=== PATIENT | male | born 1955 | race Caucasian/White ===

== ENCOUNTER 2017-02-15 14:34 | Emergency (ER) | payer BC ==
[2017-02-15] MEDS ORDERED: Sodium Chloride 0.9% 250 ML ONE (14:38)
[2017-02-15] MEDS ORDERED: EPINEPHrine 1 MG/ML SDV ONE ×3 (14:38→15:30)
[2017-02-15] MEDS ORDERED: Sodium Chloride 0.9% 100 ML ONE (14:47)
[2017-02-15] MEDS ORDERED: Lactated Ringers 1,000 ML IV ONE (14:52)
[2017-02-15] MEDS ORDERED: Famotidine 20 MG/2 ML SDV IVPUSH ONE (14:52)
[2017-02-15] MEDS ORDERED: methylPREDNISolone Sodium Succinate 125 MG/2 ML SDV IVPUSH ONE (14:52)
[2017-02-15 14:57] VITALS: BP 114/75
[2017-02-15] MEDS ORDERED: Lactated Ringers 1,000 ML IV SCH (16:05)
[2017-02-15] MEDS ORDERED: Lactated Ringers 1,000 ML ONE (16:08)
--- NOTE | 2017-02-15 19:51 | EDM.PDOC ---
ED HPI GENERAL MEDICAL PROBLEM - General Chief Complaint: Allergic Reaction Stated Complaint: [facility] Time Seen by Provider: 02/15/17 14:34 - History of Present Illness INITIAL COMMENTS - FREE TEXT/NARRATIVE: 51-year-old male brought in by EMS after having a reaction to bee sting. The patient was unresponsive have an agonal respirations he did have a pulse when EMS arrived prior to EMS arriving the patient was lightheaded had a few shaking episodes and then became unresponsive. The patient apparently had a bee sting to his left hand palmar aspect the triggered this. The patient has had recent bee stings without significant reactions. Upon arrival here the patient is waking up with a pulse in the 90s and a blood pressure in the 120s Treatments SOFTWARE PRODUCT MANAGER: Reports: IV/IO, Oxygen, Other (see below) Other Treatments SOFTWARE PRODUCT MANAGER: epi, benadryl - Related Data Allergies Allergy/AdvReac Type Severity Reaction Status Date / Time bees Allergy Anaphylactic Uncoded 02/15/17 18:18 Shock Home Meds: Home Meds Ranitidine HCl [Zantac] 1 tab PO BEDTIME 11/30/15 [History] Ascorbic Acid [Vitamin C] 1 tab PO DAILY 02/15/17 [History] EPINEPHrine [Epipen] 0.3 mg IM ASDIRECTED #1 ml 02/15/17 [Rx] Saw/Vit E/Sod Tessy/Lyc/Beta/Pyg [Prostate Health Caplet] 1 tab PO DAILY 02/15/17 [History] Past Medical History - Past Health History Medical/Surgical History: Denies Medical/Surgical History HEENT History: Reports: None Cardiovascular History: Reports: None Respiratory History: Reports: COPD Gastrointestinal History: Reports: Gastritis, GI Bleed Other Gastrointestinal History: Bleeding ulcers 15 years ago Genitourinary History: Reports: None Neurological History: Reports: None Endocrine/Metabolic History: Reports: None Hematologic History: Reports: None Oncologic (Cancer) History: Reports: None Dermatologic History: Reports: None - Infectious Disease History Infectious Disease History: Reports: None - Past Surgical History Male Surgical History: Reports: None Other Musculoskeletal Surgeries/Procedures:: right femur surgery 30 years ago Social & Family History - Family History Family Medical History: Noncontributory - Tobacco Use Smoking Status *Q: Current Every Day Smoker Years of Tobacco use: 40 Packs/Tins Daily: 1 Used Tobacco, but Quit: No Second Hand Smoke Exposure: No - Caffeine Use Caffeine Use: Reports: Soda - Recreational Drug Use Recreational Drug Use: No - Living Situation & Occupation Living situation: Reports: Occupation: Employed ED ROS ALLERGIC REACTION - Review of Systems Review Of Systems: See Below Constitutional: Reports: No Symptoms HEENT: Reports: Throat Swelling Respiratory: Reports: Shortness of Breath Cardiovascular: Reports: Lightheadedness Endocrine: Reports: No Symptoms GI/Abdominal: Reports: No Symptoms : Reports: No Symptoms Neurological: Reports: Dizziness. Denies: Headache Psychiatric: Reports: No Symptoms ED EXAM GENERAL NO PERIP PULSE - Physical Exam Exam: See Below Exam Limited By: Other (Patient was drowsy upon arrival here but waking up) General Appearance: Other (He looks a little pale upon arrival here but this rapidly improved) Eye Exam: Bilateral Eye: EOMI, Normal Inspection, PERRL Ears: Normal External Exam, Normal Canal, Hearing Grossly Normal, Normal TMs Nose: Normal Inspection, Normal Mucosa, No Blood Throat/Mouth: Normal Inspection, Normal Oropharynx, No Airway Compromise Head: Other (He has a fresh abrasion on his anterior chin) Neck: Normal Inspection, Supple, Non-Tender, Full Range of Motion. No: Lymphadenopathy (L), Lymphadenopathy (R) Respiratory/Chest: Other (Upon arrival here he was not in respiratory distress his breath sounds were clear no wheezes crackles or rhonchi respirations nonlabored) Cardiovascular: Regular Rate, Rhythm, No Edema, No Murmur GI/Abdominal: Normal Bowel Sounds, Soft, Non-Tender, No Distention, Pelvis Stable Back Exam: Normal Inspection. No: CVA Tenderness (L), CVA Tenderness (R), Vertebral Tenderness Extremities: Normal Inspection, Normal Range of Motion, Non-Tender, No Pedal Edema Neurological: Alert, Oriented, Normal Cognition Psychiatric: Normal Affect Skin Exam: Warm, Dry, Intact, Other (Bee sting noted left palmar hand between the metacarpophalangeal joints of the ring and pinky fingers) Course - Vital Signs Last Recorded V/S: Last Vital Signs Temp 36.3 C 02/15/17 14:45 Pulse 93 02/15/17 14:45 Resp 24 H 02/15/17 14:45 BP 114/75 02/15/17 14:45 Pulse Ox 94 L 02/15/17 14:45 - Orders/Labs/Meds Orders: Active Orders 24 hr Category Date Time Status EKG Documentation Completion [RC] STAT Care 02/15/17 14:53 Active Chest 1V Frontal [CR] Stat Exams 02/15/17 14:53 Taken Head wo Cont [CT] Stat Exams 02/15/17 15:10 Taken Lactated Ringers [Ringers, Lactated] 1,000 ml Med 02/15/17 16:05 Active IV STAT Medication Orders Lactated Ringer's (Ringers, Lactated) 1,000 mls @ 150 mls/hr IV STAT ESTEBAN Last Admin: 02/15/17 16:07 Dose: 150 mls/hr Labs: Laboratory Tests 02/15/17 02/15/17 02/15/17 Range/Units 15:06 15:06 15:54 WBC 10.67 H (4.23-9.07) K/mm3 RBC 5.37 (4.63-6.08) M/mm3 Hgb 16.8 (13.7-17.5) gm/L Hct 50.2 (40.1-51.0) % MCV 93.5 H (79.0-92.2) fl MCH 31.3 (25.7-32.2) pg MCHC 33.5 (32.2-35.5) g/dl RDW Std Deviation 46.8 H (35.1-43.9) fL Plt Count 240 (163-337) K/mm3 MPV 9.8 (9.4-12.3) fl Neutrophils % (Manual) 63 H (40-60) % Band Neutrophils % 0 (0-10) % Lymphocytes % (Manual) 30 (20-40) % Atypical Lymphs % 0 % Monocytes % (Manual) 7 (2-10) % Eosinophils % (Manual) 0 L (0.8-7.0) % Basophils % (Manual) 0 L (0.2-1.2) Platelet Estimate Adequate Plt Morphology Comment Normal RBC Morph Comment Normal Puncture Site Rt radial ABG pH 7.32 L (7.35-7.45) ABG pCO2 45.1 H (35.0-45.0) mmHg ABG pO2 79.0 L (80.0-100.0) mmHg ABG HCO3 22.4 (22.0-26.0) meq/L ABG O2 Saturation 96.4 (96.0-97.0) % ABG Base Excess -3.5 L (-2-2.0) A-a Gradient 95 mmHg O2 Delivery Device Nasal cannula Oxygen Flow Rate 4.0 FiO2 36.00 (21.00-100.00) % Sodium 144 (136-145) mEq/L Potassium 3.8 (3.5-5.1) mEq/L Chloride 107 (98-107) mEq/L Carbon Dioxide 26 (21-32) mEq/L Anion Gap 14.8 (5-15) BUN 23 H (7-18) mg/dL Creatinine 1.7 H (0.7-1.3) mg/dL Est Cr Clr Drug Dosing 41.58 mL/min Estimated GFR (MDRD) 41 (>60) mL/min BUN/Creatinine Ratio 13.5 L (14-18) Glucose 166 H (80-115) mg/dL Calcium 8.7 (8.5-10.1) mg/dL Total Bilirubin 0.3 (0.2-1.0) mg/dL AST 17 (15-37) U/L ALT 31 (16-63) U/L Alkaline Phosphatase 68 (46-116) U/L Troponin I 0.034 (0.00-0.056) ng/mL Total Protein 6.5 (6.4-8.2) g/dl Albumin 3.5 (3.4-5.0) g/dl Globulin 3.0 gm/dL Albumin/Globulin Ratio 1.2 (1-2) Meds: Medications Generic Name Dose Route Start Last Admin Trade Name Freq PRN Reason Stop Dose Admin Lactated Ringer's 1,000 mls @ 150 mls/hr 02/15/17 16:05 02/15/17 16:07 Ringers, Lactated IV 150 mls/hr STAT ESTEBAN Administration Discontinued Medications Generic Name Dose Route Start Last Admin Trade Name Freq PRN Reason Stop Dose Admin Epinephrine HCl Confirm 02/15/17 15:30 Adrenalin 1:1000 Administered 02/15/17 15:31 Dose 1 mg .ROUTE .STK-MED ONE Famotidine 40 mg 02/15/17 14:52 02/15/17 15:02 Pepcid IVPUSH 02/15/17 14:53 40 mg ONETIME ONE Administration Lactated Ringer's 1,000 mls @ 999 mls/hr 02/15/17 14:52 02/15/17 15:02 Ringers, Lactated IV 02/15/17 15:52 999 mls/hr .BOLUS ONE Administration Lactated Ringer's Confirm 02/15/17 16:08 02/15/17 16:09 Ringers, Lactated Administered 02/15/17 16:09 Not Given Dose 1,000 mls @ as directed .ROUTE .STK-MED ONE Methylprednisolone Sodium Succinate 125 mg 02/15/17 14:52 02/15/17 15:02 Solu-Medrol IVPUSH 02/15/17 14:53 125 mg ONETIME ONE Administration - Re-Assessments/Exams Free Text/Narrative Re-Assessment/Exam: 02/15/17 19:47 Patient was brought into the emergency room by EMS after with sounds like a severe reaction after being stung in the left hand by a beer wasp. The patient recalls getting stung as he was spraying in the yard he jumped into a side-by- side and headed to the bar where he knew of someone that helps out on the EMS service that was there. EMS was activated the patient shortly after arriving at the bar which was about the time EMS was activated became lightheaded he had a couple of shaking episodes. When EMS arrived the patient was have an agonal type respirations he did have a pulse he was given epinephrine and Benadryl and his condition did improve somewhat they got an IV going and fluids started they repeated the epinephrine for a total of 3 doses 0.5 mg. When the patient arrived here his blood pressure was reasonable his pulse had improved he was coming around and waking up he was observed and he continued to do well he was kept on fluids he was given Solu-Medrol he was given Pepcid he received Benadryl by EMS. The patient situation was observed for multiple hours and he has done well he would like to go home at this point labs were obtained of concern is his BUN/creatinine are elevated a little bit with a creatinine of 1.7 also of note his blood sugar of 166. 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 The patient will be discharged with prescription for EpiPen. Departure - Departure Time of Disposition: 19:51 Disposition: Home, Self-Care 01 Clinical Impression: Bee sting-induced anaphylaxis - Discharge Information Prescriptions: EPINEPHrine [Epipen] 0.3 mg IM ASDIRECTED #1 ml Instructions: Anaphylactic Reaction, Jhyv-[id number], Bee, Wasp, or Hornet Sting Referrals: PCP,None [Primary Care Provider] - Forms: ED Department Discharge Additional Instructions: Return to the emergency room with any questions problems or worsening symptoms. Seek immediate medical care if he need to use your EpiPen. Follow-up in the Hospital clinic on Thursday or for recheck. [phone]. Discuss rechecking your kidney function and rechecking your blood sugar. On a normal day you should drink 6-812 ounce glasses of water. On days that you are working outside in the heat this needs to increase. Increase her fluid intake. - My Orders Last 24 Hours: My Active Orders 02/15/17 14:53 EKG Documentation Completion [RC] STAT Chest 1V Frontal [CR] Stat 02/15/17 15:10 Head wo Cont [CT] Stat 02/15/17 16:05 Lactated Ringers [Ringers, Lactated] 1,000 ml IV STAT - Assessment/Plan Last 24 Hours: My Active Orders 02/15/17 14:53 EKG Documentation Completion [RC] STAT Chest 1V Frontal [CR] Stat 02/15/17 15:10 Head wo Cont [CT] Stat 02/15/17 16:05 Lactated Ringers [Ringers, Lactated] 1,000 ml IV STAT
--- NOTE | 2017-02-16 08:57 | CR ---
Chest: Portable view of the chest was obtained. Comparison: No prior study. Heart size and mediastinum are within normal limits for portable technique. Lungs are clear. Bony structures are grossly intact. Impression: 1. Nothing acute is identified on portable chest x-ray. Diagnostic code #1
--- NOTE | 2017-02-16 12:15 | CT ---
Head CT Technique: Multiple axial sections through the brain were obtained. Intravenous contrast was not utilized. Comparison: Previous head CT study of 11/30/15. Findings: Ventricles along with basal cisterns and sulci over the convexities are mildly prominent. Minimal diminished density is scattered within the periventricular white matter compatible with small vessel ischemic demyelination change. No other abnormal parenchymal densities are seen. No evidence of intracranial hemorrhage. No midline shift or mass effect is seen. Bone window settings were reviewed which show the visualized sinuses to appear clear. No acute calvarial abnormality is identified. Impression: 1. Minimal senescent change. Nothing acute is seen on noncontrast head CT study. Diagnostic code #2 I agree with preliminary report issued by [employer] ([employer] preliminary report dictated on 02/15/17, 4:57 PM Central Time)
== END 2017-02-15 20:10 | disposition home or self-care (01) ==
LOC: JD.ED 14:34
DX: T63.441A Toxic effect of venom of bees, accidental (unintentional), initial encounter (principal); T78.2XXA Anaphylactic shock, unspecified, initial encounter; J44.9 Chronic obstructive pulmonary disease, unspecified; F17.210 Nicotine dependence, cigarettes, uncomplicated; Z79.899 Other long term (current) drug therapy
CPT/HCPCS: 36415; 36600; 70450; 71010; 80053; 82803; 84484; 85025; 93005; 96361; 96374; 96375; 99285; J2930; J7120; 99283

== ENCOUNTER 2017-04-11 21:44 | Emergency (ER) | payer BC ==
--- NOTE | 2017-04-11 22:00 | EDM.PDOC ---
ED HPI GENERAL MEDICAL PROBLEM - General Chief Complaint: Genitourinary Problem Stated Complaint: CANNOT URINATE Time Seen by Provider: 04/11/17 21:46 Source of Information: Reports: Patient History Limitations: Reports: No Limitations - History of Present Illness INITIAL COMMENTS - FREE TEXT/NARRATIVE: This is a 61-year-old male. At 8:30 PM this evening he noted he was not able to urinate and has not been able to urinate since that time. He comes to the ER because his bladder is full on exam in a lot of lower abdominal pain. Back in July of this year he had a similar episode requiring a Ramsey catheter and is thought to be due to a stone he tells me it was in the way and the Ramsey catheter push that stone out of the way. He never followed up with anybody after that and just remove the Ramsey catheter himself at home and seemed to do okay since that time. He does state that he has not noted a change in his urine stream or dribbles. He denies any other acute symptoms. Bladder Pain Score (Numeric/FACES): 8 - Related Data Allergies Allergy/AdvReac Type Severity Reaction Status Date / Time bees Allergy Anaphylactic Uncoded 04/11/17 21:50 Shock Home Meds: Home Meds . [No Known Home Meds] 04/11/17 [History] Past Medical History - Past Health History Medical/Surgical History: Denies Medical/Surgical History HEENT History: Reports: None Cardiovascular History: Reports: None Respiratory History: Reports: COPD Gastrointestinal History: Reports: Gastritis, GI Bleed Other Gastrointestinal History: Bleeding ulcers 15 years ago Genitourinary History: Reports: None Neurological History: Reports: None Endocrine/Metabolic History: Reports: None Hematologic History: Reports: None Oncologic (Cancer) History: Reports: None Dermatologic History: Reports: None - Infectious Disease History Infectious Disease History: Reports: None - Past Surgical History Male Surgical History: Reports: None Other Musculoskeletal Surgeries/Procedures:: right femur surgery 30 years ago Social & Family History - Family History Family Medical History: Noncontributory - Tobacco Use Smoking Status *Q: Current Every Day Smoker Years of Tobacco use: 40 Packs/Tins Daily: 1 Used Tobacco, but Quit: No Second Hand Smoke Exposure: No - Caffeine Use Caffeine Use: Reports: Soda - Recreational Drug Use Recreational Drug Use: No - Living Situation & Occupation Living situation: Reports: Occupation: Employed ED ROS GENERAL - Review of Systems Review Of Systems: See Below Constitutional: Denies: Fever, Chills HEENT: Reports: No Symptoms Respiratory: Reports: No Symptoms Cardiovascular: Reports: No Symptoms Endocrine: Reports: No Symptoms GI/Abdominal: Reports: Abdominal Pain : Reports: Urinary Retention Musculoskeletal: Reports: No Symptoms Skin: Reports: No Symptoms Neurological: Reports: No Symptoms Psychiatric: Reports: No Symptoms Hematologic/Lymphatic: Reports: No Symptoms ED EXAM, RENAL/ - Physical Exam Exam: See Below Exam Limited By: No Limitations General Appearance: Alert, WD/WN, Mild Distress Eye Exam: Bilateral Eye: Normal Inspection Ears: Normal External Exam Nose: Normal Inspection Throat/Mouth: Normal Inspection, Normal Lips, Normal Voice Head: Normocephalic Neck: Supple Respiratory/Chest: No Respiratory Distress GI/Abdominal: Other (Mildly distended, noted to be very tense in the lower abdomen and painful on palpation, not feeling any masses though I believe I feel the fundus of the bladder) Rectal (Males) Exam: Normal Rectal Tone Back Exam: Normal Inspection, Full Range of Motion Extremities: Normal Inspection, Normal Range of Motion Neurological: Alert, Oriented Skin Exam: Warm, Dry Course - Vital Signs Last Recorded V/S: Last Vital Signs Temp 98.5 F 04/11/17 21:51 Pulse 100 04/11/17 21:51 Resp 18 04/11/17 21:51 BP 201/94 H 04/11/17 21:51 Pulse Ox 95 04/11/17 21:51 - Orders/Labs/Meds Orders: Active Orders 24 hr Category Date Time Status Insert Ramsey Catheter [Insert Urinary Catheter] [OM.PC] Care 04/11/17 22:30 Ordered Q24H Urinary Catheter Assessment [RC] ASDIRECTED Care 04/11/17 22:23 Active Labs: Laboratory Tests 04/11/17 04/11/17 04/11/17 Range/Units 22:45 22:55 22:55 WBC 11.79 H (4.23-9.07) K/mm3 RBC 5.29 (4.63-6.08) M/mm3 Hgb 16.9 (13.7-17.5) gm/L Hct 49.0 (40.1-51.0) % MCV 92.6 H (79.0-92.2) fl MCH 31.9 (25.7-32.2) pg MCHC 34.5 (32.2-35.5) g/dl RDW Std Deviation 46.0 H (35.1-43.9) fL Plt Count 196 (163-337) K/mm3 MPV 10.1 (9.4-12.3) fl Neut % (Auto) 82.5 H (34.0-67.9) % Lymph % (Auto) 11.4 L (21.8-53.1) % Alexander % (Auto) 5.3 (5.3-12.2) % Eos % (Auto) 0.5 L (0.8-7.0) Baso % (Auto) 0.1 (0.1-1.2) % Neut # (Auto) 9.73 H (1.78-5.38) K/mm3 Lymph # (Auto) 1.34 (1.32-3.57) K/mm3 Alexander # (Auto) 0.63 (0.30-0.82) K/mm3 Eos # (Auto) 0.06 (0.04-0.54) K/mm3 Baso # (Auto) 0.01 (0.01-0.08) K/mm3 Sodium 142 (136-145) mEq/L Potassium 4.0 (3.5-5.1) mEq/L Chloride 105 (98-107) mEq/L Carbon Dioxide 27 (21-32) mEq/L Anion Gap 14.0 (5-15) BUN 30 H (7-18) mg/dL Creatinine 1.3 (0.7-1.3) mg/dL Est Cr Clr Drug Dosing 56.27 mL/min Estimated GFR (MDRD) 56 (>60) mL/min BUN/Creatinine Ratio 23.1 H (14-18) Glucose 115 (80-115) mg/dL Calcium 8.5 (8.5-10.1) mg/dL Total Bilirubin 0.5 (0.2-1.0) mg/dL AST 23 (15-37) U/L ALT 37 (16-63) U/L Alkaline Phosphatase 71 (46-116) U/L Total Protein 6.4 (6.4-8.2) g/dl Albumin 3.6 (3.4-5.0) g/dl Globulin 2.8 gm/dL Albumin/Globulin Ratio 1.3 (1-2) Urine Color Yellow (Yellow) Urine Appearance Clear (Clear) Urine pH 6.5 (5.0-8.0) Ur Specific Hurley 1.015 (1.005-1.030) Urine Protein Negative (Negative) Urine Glucose (UA) Negative (Negative) Urine Ketones Negative (Negative) Urine Occult Blood 3+ H (Negative) Urine Nitrite Negative (Negative) Urine Bilirubin Negative (Negative) Urine Urobilinogen 0.2 (0.2-1.0) Ur Leukocyte Esterase Negative (Negative) Urine RBC 20-30 H (0-5) /hpf Urine WBC 0-5 (0-5) /hpf Ur Epithelial Cells 0-5 (0-5) /hpf Urine Bacteria Not seen (FEW) /hpf Urine Mucus Not seen (FEW) /hpf - Re-Assessments/Exams Free Text/Narrative Re-Assessment/Exam: 04/11/17 22:33 Bladder scan showed about 720 mL and was replace the Ramsey catheter we got about 750 mL of urine. It does appear to be slightly pink tinged we'll send for urinalysis I'm going to get some blood work on him to check kidney function as well. 04/11/17 23:57 I spoke to the patient regarding his lab results he does have some blood in his urine and I believe that's from the urinary retention putting pressure on the kidneys. I explained to him that should resolve in the next 24 hours if it does not when he sees the family physician on Thursday he needs to have that rechecked. He understands. He has been given Ramsey catheter care. Departure - Departure Time of Disposition: 23:57 Disposition: Home, Self-Care 01 Condition: Good Clinical Impression: Urinary retention Hematuria Qualifiers: Hematuria type: unspecified type Qualified Code(s): R31.9 - Hematuria, unspecified - Discharge Information Instructions: Ramsey Catheter Care, Adult Referrals: Meche Pyle [Physician] - Forms: ED Department Discharge Additional Instructions: On Thursday called Dr. Pyle's office and let them know that you have a Ramsey catheter so that they can see you Thursday and remove that catheter, continue with Ramsey catheter care at home, return to the ER if needed - My Orders Last 24 Hours: My Active Orders 04/11/17 22:23 Urinary Catheter Assessment [RC] ASDIRECTED 04/11/17 22:30 Insert Ramsye Catheter [Insert Urinary Catheter] [OM.PC] Q24H - Assessment/Plan Last 24 Hours: My Active Orders 04/11/17 22:23 Urinary Catheter Assessment [RC] ASDIRECTED 04/11/17 22:30 Insert Ramsey Catheter [Insert Urinary Catheter] [OM.PC] Q24H
[2017-04-12 00:07] VITALS: BP 133/73
== END 2017-04-12 00:04 | disposition home or self-care (01) ==
LOC: JD.ED 21:44
DX: R33.9 Retention of urine, unspecified (principal); R31.9 Hematuria, unspecified; F17.210 Nicotine dependence, cigarettes, uncomplicated; Z91.030 Bee allergy status
CPT/HCPCS: 36415; 51702; 51798; 80053; 81001; 85025; 99284; 99284-25

== ENCOUNTER 2017-08-14 19:05 | Emergency (ER) | payer BC ==
[2017-08-14 19:14] VITALS: BP 197/91
--- NOTE | 2017-08-14 19:36 | EDM.PDOC ---
ED HPI GENERAL MEDICAL PROBLEM - General Chief Complaint: Genitourinary Problem Stated Complaint: TROUBLE URINATING Time Seen by Provider: 08/14/17 19:14 Source of Information: Reports: Patient History Limitations: Reports: No Limitations - History of Present Illness INITIAL COMMENTS - FREE TEXT/NARRATIVE: Is a 61-year-old male. He states he started having some urinary retention this evening and comes to the ER because he cannot urinate. He's had this problem before once in July 2016 and then April 2017. He says he got an MRI of his abdomen and pelvis because they thought they saw a bladder stone but he was called and told that his MRI was normal. He was supposed to follow up with someone he is not sure to get blood work for further evaluation of his urinary retention. He denies any other acute symptoms. No recent over-the -counter medication such as decongestants. He is on Flomax. No other acute symptoms at this time. Bladder Pain Score (Numeric/FACES): 10 - Related Data Allergies Allergy/AdvReac Type Severity Reaction Status Date / Time bees Allergy Anaphylactic Uncoded 04/11/17 21:50 Shock Home Meds: Home Meds Ranitidine HCl [Zantac] 300 mg PO DAILY 08/14/17 [History] Tamsulosin [Flomax] 0.4 mg PO DAILY 08/14/17 [History] Past Medical History - Past Health History Medical/Surgical History: Denies Medical/Surgical History HEENT History: Reports: None Cardiovascular History: Reports: None Respiratory History: Reports: COPD Gastrointestinal History: Reports: Gastritis, GI Bleed Other Gastrointestinal History: Bleeding ulcers 15 years ago Genitourinary History: Reports: None Neurological History: Reports: None Endocrine/Metabolic History: Reports: None Hematologic History: Reports: None Oncologic (Cancer) History: Reports: None Dermatologic History: Reports: None - Infectious Disease History Infectious Disease History: Reports: None - Past Surgical History Male Surgical History: Reports: None Other Musculoskeletal Surgeries/Procedures:: right femur surgery 30 years ago Social & Family History - Family History Family Medical History: Noncontributory - Tobacco Use Smoking Status *Q: Current Every Day Smoker Years of Tobacco use: 40 Packs/Tins Daily: 1 Used Tobacco, but Quit: No Second Hand Smoke Exposure: No - Caffeine Use Caffeine Use: Reports: Tea - Recreational Drug Use Recreational Drug Use: No - Living Situation & Occupation Living situation: Reports: Occupation: Employed ED ROS GENERAL - Review of Systems Review Of Systems: See Below Constitutional: Denies: Fever, Chills HEENT: Reports: No Symptoms Respiratory: Reports: No Symptoms Cardiovascular: Reports: No Symptoms Endocrine: Reports: No Symptoms GI/Abdominal: Reports: Abdominal Pain. Denies: Diarrhea, Nausea, Vomiting : Reports: Urinary Retention Musculoskeletal: Reports: No Symptoms Skin: Reports: No Symptoms Neurological: Reports: No Symptoms Psychiatric: Reports: No Symptoms Hematologic/Lymphatic: Reports: No Symptoms ED EXAM, RENAL/ - Physical Exam Exam: See Below Exam Limited By: No Limitations General Appearance: Alert, WD/WN, No Apparent Distress Eye Exam: Bilateral Eye: Normal Inspection Ears: Normal External Exam Nose: Normal Inspection Throat/Mouth: Normal Inspection, Normal Lips, Normal Voice, No Airway Compromise Head: Normocephalic Neck: Supple Respiratory/Chest: No Respiratory Distress, Lungs Clear, Normal Breath Sounds Cardiovascular: Regular Rate, Rhythm, No Murmur GI/Abdominal: Other (Patient has a very distended bladder. It is tender on palpation. His upper abdomen is nontender bowel sounds are positive but decreased. The bladder scan showed 626 mL in the bladder) Back Exam: Full Range of Motion Extremities: Normal Inspection, Normal Range of Motion Neurological: Alert, Oriented Psychiatric: Normal Affect, Normal Mood Skin Exam: Warm, Dry Course - Vital Signs Last Recorded V/S: Last Vital Signs Temp 98.2 F 08/14/17 19:12 Pulse 79 08/14/17 19:12 Resp 20 08/14/17 19:12 BP 197/91 H 08/14/17 19:12 Pulse Ox 98 08/14/17 19:12 - Orders/Labs/Meds Orders: Active Orders 24 hr Category Date Time Status KUB [Abdomen 1V Flat] [CR] Stat Exams 08/14/17 19:51 Ordered Labs: Laboratory Tests 08/14/17 Range/Units 19:30 Urine Color Yellow (Yellow) Urine Appearance Clear (Clear) Urine pH 6.0 (5.0-8.0) Ur Specific [place] 1.010 (1.005-1.030) Urine Protein Negative (Negative) Urine Glucose (UA) Negative (Negative) Urine Ketones Negative (Negative) Urine Occult Blood 3+ H (Negative) Urine Nitrite Negative (Negative) Urine Bilirubin Negative (Negative) Urine Urobilinogen 0.2 (0.2-1.0) Ur Leukocyte Esterase Negative (Negative) Urine RBC 0-5 (0-5) /hpf Urine WBC 0-5 (0-5) /hpf Ur Epithelial Cells 0-5 (0-5) /hpf Urine Bacteria Not seen (FEW) /hpf Urine Mucus Not seen (FEW) /hpf - Re-Assessments/Exams Free Text/Narrative Re-Assessment/Exam: 08/14/17 21:33 I spoke to the patient regarding his x-ray results and his urinalysis which were both normal. I encouraged him to follow up with the urologist Dr. Bhagat this coming week for additional workup for the urinary retention or follow-up with Dr. Gunter for your catheter removal. Departure - Departure Time of Disposition: 21:35 Disposition: Home, Self-Care 01 Condition: Good Clinical Impression: Urinary retention - Discharge Information Referrals: David Roe MD [Primary Care Provider] - Forms: ED Department Discharge Additional Instructions: I would encourage you to call Dr. Bhagat, , the urologist that you saw before for continued workup of the urinary retention, you can call Dr. Gunter on Thursday about getting the Ramsey catheter removed if you desire, return to the ER if needed - My Orders Last 24 Hours: My Active Orders 08/14/17 19:51 KUB [Abdomen 1V Flat] [CR] Stat - Assessment/Plan Last 24 Hours: My Active Orders 08/14/17 19:51 KUB [Abdomen 1V Flat] [CR] Stat
--- NOTE | 2017-08-17 07:59 | CR ---
Abdomen: Supine view of the abdomen was obtained. Comparison: No prior abdominal x-ray, previous CT abdomen and pelvis exam of 07/22/16 is available. Bowel gas pattern appears unremarkable. Single gallstone is noted within the upper right abdomen which was noted on prior CT exam. No other abnormal calcifications are identified. Minimal degenerative change is noted within the spine and within both hips. Impression: 1. Single gallstone which is stable from prior CT abdomen and pelvis exam. 2. Other incidental findings. Diagnostic code #2
== END 2017-08-14 21:45 | disposition home or self-care (01) ==
LOC: JD.ED 19:05
DX: R33.9 Retention of urine, unspecified (principal); J44.9 Chronic obstructive pulmonary disease, unspecified; F17.210 Nicotine dependence, cigarettes, uncomplicated; Z79.899 Other long term (current) drug therapy; Z91.030 Bee allergy status
CPT/HCPCS: 51702; 51798; 74018; 74018-26; 81001; 99283; 99284-25

== ENCOUNTER 2020-01-03 22:06 | Emergency (ER) | payer MEDICARE, BC ==
[2020-01-03] MEDS ORDERED: Sodium Chloride 0.9% 10 ML Syringe FLUSH PRN (22:13)
[2020-01-03] MEDS ORDERED: Aspirin 81 MG Tab.Chew PO ONE (22:17)
[2020-01-03] MEDS ORDERED: Pantoprazole 40 MG Vial IVPUSH ONE (22:30)
[2020-01-03] MEDS ORDERED: Alum Hydrox/Mag Hydrox/Simeth 30 ML, Lidocaine 2% 15 ML PO ONE ×2 (22:30)
--- NOTE | 2020-01-03 22:35 | EDM.PDOC ---
ED HPI GENERAL MEDICAL PROBLEM - General Chief Complaint: Chest Pain Stated Complaint: CHEST PAIN Time Seen by Provider: 01/03/20 22:16 Source of Information: Reports: Patient, RN Notes Reviewed History Limitations: Reports: No Limitations - History of Present Illness INITIAL COMMENTS - FREE TEXT/NARRATIVE: Patient is a 64-year-old male who presents to the ED for evaluation of his left chest pain. Patient notes he has been having issues with this for around 1 week, but he believes this to be heartburn. He notes he has been eating Tums by the handful, and also taking Zantac with little to no relief. Patient notes he has ongoing issues with reflux/heartburn issues, he is taken Zantac since the per his history. Patient became concerned tonight however when he was coming upstairs from the basement, when he got a little bit more winded than he normally does, and started having some intense left-sided chest pressure that went down his left arm. Patient has been noting some increasing chest pressure/discomfort like this in the past week. He states that the chest pain however tonight seem to be a little bit different in character, more intense and worse. Patient notes that he does have an appointment with his care provider, Dr. David Gunter this for further evaluation, but something just did not feel right tonight. Patient states that he is a [id number] smoker, he does not take any sort of blood pressure medications, and only takes medication to control his prostate. Left Chest Pain Score (Numeric/FACES): 2 - Related Data Allergies Allergy/AdvReac Type Severity Reaction Status Date / Time bees Allergy Anaphylactic Uncoded 01/03/20 22:17 Shock Home Meds: Home Meds Tamsulosin [Flomax] 0.4 mg PO DAILY 08/14/17 [History] raNITIdine HCl [Zantac] 300 mg PO DAILY 08/14/17 [History] Finasteride 1 tab PO DAILY 01/03/20 [History] Oxybutynin [Oxybutynin ER] 1 tab PO DAILY 01/03/20 [History] Past Medical History Respiratory History: Reports: COPD Gastrointestinal History: Reports: Gastritis, GI Bleed Other Gastrointestinal History: Bleeding ulcers 15 years ago Genitourinary History: Reports: BPH - Past Surgical History Other Musculoskeletal Surgeries/Procedures:: right femur surgery 30 years ago Social & Family History - Family History Family Medical History: Noncontributory - Tobacco Use Smoking Status *Q: Current Every Day Smoker Years of Tobacco use: 40 Packs/Tins Daily: 1 - Caffeine Use Caffeine Use: Reports: Coffee - Recreational Drug Use Recreational Drug Use: No - Living Situation & Occupation Living situation: Reports: Occupation: Employed ED ROS GENERAL - Review of Systems Review Of Systems: Comprehensive ROS is negative, except as noted in HPI. ED EXAM, GENERAL - Physical Exam Exam: See Below Exam Limited By: No Limitations General Appearance: Alert, WD/WN, No Apparent Distress Eye Exam: Bilateral Eye: EOMI, Normal Inspection, PERRL Nose: Normal Inspection Throat/Mouth: Normal Inspection, Normal Lips, Normal Teeth, Normal Gums, Normal Oropharynx, Normal Voice, No Airway Compromise Head: Atraumatic, Normocephalic Neck: Normal Inspection Respiratory/Chest: No Respiratory Distress, Lungs Clear, Normal Breath Sounds, No Accessory Muscle Use, Chest Non-Tender Cardiovascular: Normal Peripheral Pulses, Regular Rate, Rhythm, No Edema, No Murmur Peripheral Pulses: 2+: Radial (L), Radial (R) Extremities: Normal Inspection, Normal Capillary Refill Neurological: Alert, Oriented, Normal Cognition, No Motor/Sensory Deficits Psychiatric: Normal Affect, Normal Mood Skin Exam: Warm, Dry, Intact, Normal Color, No Rash EKG INTERPRETATION EKG Date: 01/03/20 Time: 22:12 Rhythm: NSR Rate (Beats/Min): 55 [place]: Normal P-Wave: Present QRS: RBBB ST-T: Other (Nonspecific ST and T wave changes) QT: Normal EKG Interpretation Comments: EKG reviewed by myself and Dr. Valdez. Course - Vital Signs Last Recorded V/S: Last Vital Signs Temp 97.4 F 01/03/20 22:12 Pulse 65 01/03/20 23:31 Resp 18 01/03/20 23:31 BP 131/79 01/03/20 23:31 Pulse Ox 95 01/03/20 23:31 - Orders/Labs/Meds Orders: Active Orders 24 hr Category Date Time Status EKG Documentation Completion [RC] STAT Care 01/03/20 22:13 Active Peripheral IV Care [RC] . DIRECTED Care 01/03/20 22:13 Active Peripheral IV Insertion Adult [OM.PC] Stat Oth 01/03/20 22:13 Ordered Labs: Laboratory Tests 01/03/20 01/03/20 01/03/20 Range/Units 22:21 22:21 22:21 WBC 8.50 (4.23-9.07) K/mm3 RBC 5.40 (4.63-6.08) M/mm3 Hgb 17.1 (13.7-17.5) gm/dl Hct 51.0 (40.1-51.0) % MCV 94.4 H (79.0-92.2) fl MCH 31.7 (25.7-32.2) pg MCHC 33.5 (32.2-35.5) g/dl RDW Std Deviation 47.3 H (35.1-43.9) fL Plt Count 195 (163-337) K/mm3 MPV 10.2 (9.4-12.3) fl Neut % (Auto) 64.9 (34.0-67.9) % Lymph % (Auto) 26.1 (21.8-53.1) % [place] % (Auto) 7.1 (5.3-12.2) % Eos % (Auto) 1.3 (0.8-7.0) Baso % (Auto) 0.4 (0.1-1.2) % Neut # (Auto) 5.52 H (1.78-5.38) K/mm3 Lymph # (Auto) 2.22 (1.32-3.57) K/mm3 [place] # (Auto) 0.60 (0.30-0.82) K/mm3 Eos # (Auto) 0.11 (0.04-0.54) K/mm3 Baso # (Auto) 0.03 (0.01-0.08) K/mm3 PT 10.2 (9.7-12.0) SECONDS INR 0.93 APTT 27 (22-31) SECONDS Sodium 142 (136-145) mEq/L Potassium 3.8 (3.5-5.1) mEq/L Chloride 104 (98-107) mEq/L Carbon Dioxide 31 (21-32) mEq/L Anion Gap 10.8 (5-15) BUN 20 H (7-18) mg/dL Creatinine 1.3 (0.7-1.3) mg/dL Est Cr Clr Drug Dosing 50.44 mL/min Estimated GFR (MDRD) 55 (>60) mL/min BUN/Creatinine Ratio 15.4 (14-18) Glucose 124 H (80-115) mg/dL Calcium 9.3 (8.5-10.1) mg/dL Magnesium 1.9 (1.8-2.4) mg/dl Total Bilirubin 0.2 (0.2-1.0) mg/dL AST 11 L (15-37) U/L ALT 28 (16-63) U/L Alkaline Phosphatase 94 (46-116) U/L Troponin I < 0.017 (0.00-0.056) ng/mL NT-Pro-B Natriuret Pep (0-125) pg/mL Total Protein 7.0 (6.4-8.2) g/dl Albumin 3.5 (3.4-5.0) g/dl Globulin 3.5 gm/dL Albumin/Globulin Ratio 1.0 (1-2) 01/03/20 Range/Units 22:21 WBC (4.23-9.07) K/mm3 RBC (4.63-6.08) M/mm3 Hgb (13.7-17.5) gm/dl Hct (40.1-51.0) % MCV (79.0-92.2) fl MCH (25.7-32.2) pg MCHC (32.2-35.5) g/dl RDW Std Deviation (35.1-43.9) fL Plt Count (163-337) K/mm3 MPV (9.4-12.3) fl Neut % (Auto) (34.0-67.9) % Lymph % (Auto) (21.8-53.1) % [place] % (Auto) (5.3-12.2) % Eos % (Auto) (0.8-7.0) Baso % (Auto) (0.1-1.2) % Neut # (Auto) (1.78-5.38) K/mm3 Lymph # (Auto) (1.32-3.57) K/mm3 [place] # (Auto) (0.30-0.82) K/mm3 Eos # (Auto) (0.04-0.54) K/mm3 Baso # (Auto) (0.01-0.08) K/mm3 PT (9.7-12.0) SECONDS INR APTT (22-31) SECONDS Sodium (136-145) mEq/L Potassium (3.5-5.1) mEq/L Chloride (98-107) mEq/L Carbon Dioxide (21-32) mEq/L Anion Gap (5-15) BUN (7-18) mg/dL Creatinine (0.7-1.3) mg/dL Est Cr Clr Drug Dosing mL/min Estimated GFR (MDRD) (>60) mL/min BUN/Creatinine Ratio (14-18) Glucose (80-115) mg/dL Calcium (8.5-10.1) mg/dL Magnesium (1.8-2.4) mg/dl Total Bilirubin (0.2-1.0) mg/dL AST (15-37) U/L ALT (16-63) U/L Alkaline Phosphatase (46-116) U/L Troponin I (0.00-0.056) ng/mL NT-Pro-B Natriuret Pep 224 H (0-125) pg/mL Total Protein (6.4-8.2) g/dl Albumin (3.4-5.0) g/dl Globulin gm/dL Albumin/Globulin Ratio (1-2) Meds: Medications Discontinued Medications Generic Name Dose Route Start Last Admin Trade Name Freq PRN Reason Stop Dose Admin Aspirin 324 mg 01/03/20 22:17 01/03/20 22:42 Aspirin PO 01/03/20 22:18 324 mg ONETIME ONE Administration Al Hydroxide/Mg Hydroxide 30 0 ml 01/03/20 22:30 01/03/20 22:43 ml/ Lidocaine HCl 15 ml PO 01/03/20 22:31 45 ml ONETIME ONE Administration Pantoprazole Sodium 40 mg 01/03/20 22:30 01/03/20 22:45 Protonix Iv IVPUSH 01/03/20 22:31 40 mg ONETIME ONE Administration Sodium Chloride 10 ml 01/03/20 22:13 01/03/20 22:51 Saline Flush FLUSH 10 ml ASDIRECTED PRN Administration Keep Vein Open - Re-Assessments/Exams Free Text/Narrative Re-Assessment/Exam: 01/03/20 22:36 Patient presents to the ED for evaluation of his left-sided chest pain. EKG demonstrates no obvious ST depression or acute ischemic changes. This was reviewed by myself and Dr. Valdez. Right bundle branch block is appreciated, with nonspecific ST and T wave changes. Laboratory evaluation will be obtained to further evaluate any sort of cardiac etiology, however presentation is concerning for possible cardiac involvement. If work-up tonight is unremarkable, we will likely try to line him up for outpatient stress test for further management and evaluation. 01/03/20 23:14 Laboratory evaluation demonstrates no focal abnormalities. BNP is mildly elevated 224, the patient's chest x-ray shows no sign of pulmonary congestion, but does demonstrate borderline cardiomegaly, reviewed by myself and Dr. Valdez. Official radiology read is pending. Trope was negative as well. I did discuss with the patient, the possibility of staying in the ER and getting a repeat troponin at around 1230, but he declined at this time. He states he has an appoint with Dr. Gunter, will talk to him further about any sort of card iac issues that he should need worked up like a possible stress test. Departure - Departure Time of Disposition: 23:16 Disposition: Home, Self-Care 01 Condition: Good Clinical Impression: Atypical chest pain, Chronic heartburn Instructions: Indigestion, [id number], Angina, [id number] Referrals: David Roe MD [Primary Care Provider] - Forms: ED Department Discharge Additional Instructions: You were evaluated in the ER today regarding your left-sided chest pain. Laboratory evaluation demonstrated no worrisome abnormalities, troponin was negative, EKG was within normal limits, chest x-ray was concerning slight cardiomegaly. Highly recommend you keep her appoint with Dr. Gunter for , and talk about the possibility of an outpatient stress test/echo/carotid artery studies for further cardiac evaluation. As you did get a little bit of relief with the GI cocktail given at [facility]'s visit, and due to not being able to obtain Zantac [id number], you may supplement this medication with Pepcid or famotidine, 20 to 40 mg at bedtime for heartburn relief. This would take place of Zantac. This medication is available [id number], you can get this at any sort of retail space like a pharmacy or [employer]. Please return to the ER at any time if symptoms change or worsen. Sepsis Event Note (ED) - Evaluation Sepsis Screening Result: No Definite Risk - Focused Exam Vital Signs: Vital Signs Pulse Resp BP Pulse Ox 01/03/20 23:31 65 18 131/79 95 - My Orders Last 24 Hours: My Active Orders 01/03/20 22:13 EKG Documentation Completion [RC] STAT Peripheral IV Care [RC] . DIRECTED Peripheral IV Insertion Adult [OM.PC] Stat - Assessment/Plan Last 24 Hours: My Active Orders 01/03/20 22:13 EKG Documentation Completion [RC] STAT Peripheral IV Care [RC] . DIRECTED Peripheral IV Insertion Adult [OM.PC] Stat
[2020-01-03 23:35] VITALS: BP 131/79; PULSE 65
--- NOTE | 2020-01-04 06:22 | CR ---
Chest: Frontal view of the chest was obtained. Comparison: Prior chest x-ray of 02/15/17. Heart size and mediastinum are normal. Lungs are clear with no acute parenchymal change. Bony structures are unremarkable. Impression: 1. Nothing acute is appreciated on frontal chest x-ray. Diagnostic code #1 This report was dictated in MDT
== END 2020-01-03 23:31 | disposition home or self-care (01) ==
LOC: JD.ED 22:06
DX: R07.89 Other chest pain (principal); R12 Heartburn; F17.210 Nicotine dependence, cigarettes, uncomplicated; J44.9 Chronic obstructive pulmonary disease, unspecified; Z79.899 Other long term (current) drug therapy; Z91.030 Bee allergy status
CPT/HCPCS: 36415; 71045; 80053; 83735; 83880; 84484; 85025; 85610; 85730; 93005; 96374; 99285; A9270; C9113

== ENCOUNTER 2020-01-11 09:10 | Emergency (ER) | payer MEDICARE, BC ==
[2020-01-11 09:19] VITALS: BP 163/82; PULSE 62
[2020-01-11] MEDS ORDERED: Aspirin 81 MG Tab.Chew PO ONE (09:28)
[2020-01-11] MEDS ORDERED: Sodium Chloride 0.9% 10 ML Syringe FLUSH PRN (09:28)
[2020-01-11] MEDS ORDERED: Alum Hydrox/Mag Hydrox/Simeth 30 ML, Lidocaine 2% 15 ML PO ONE ×2 (09:29)
[2020-01-11] MEDS ORDERED: Famotidine 20 MG/2 ML SDV IVPUSH ONE (09:29)
--- NOTE | 2020-01-11 10:05 | CR ---
Chest: 2 views of the chest were obtained. Comparison: Prior chest x-ray of 01/03/20. Heart size and mediastinum are normal. Lungs are clear with no acute parenchymal change. Bony structures are unremarkable. Impression: 1. Nothing acute is appreciated on 2 view chest x-ray. Diagnostic code #1 This report was dictated in MDT
--- NOTE | 2020-01-11 11:28 | EDM.PDOC ---
ED HPI GENERAL MEDICAL PROBLEM - General Chief Complaint: Chest Pain Stated Complaint: CHEST PAIN Time Seen by Provider: 01/11/20 09:19 Source of Information: Reports: Patient History Limitations: Reports: No Limitations - History of Present Illness INITIAL COMMENTS - FREE TEXT/NARRATIVE: The patient presents with chest pain. He woke up feeling fine but when he took a shower he bent over to clean his legs and the chest pain started. He took some tums and the pain was better. This has been an ongoing problem for about 2 weeks. He also has a history of GERD in the past. He takes zantac and tums. He was seen here on January 02 for the same and he had a complete work up with an EKG and troponin. There were no acute changes. He saw Dr Gunter and he prescribed him something and ordered a stress test for Thursday. He smokes but he has no history of hypertension, hypercholesterolemia and diabetes. Onset: Gradual Duration: Week(s): Location: Reports: Chest Quality: Reports: Burning Severity: Moderate Improves with: Reports: None Worsens with: Reports: None Associated Symptoms: Reports: Chest Pain, Shortness of Breath. Denies: Cough, Fever/Chills, Headaches, Nausea/Vomiting - Related Data Allergies Allergy/AdvReac Type Severity Reaction Status Date / Time bees Allergy Severe Anaphylactic Uncoded 01/11/20 09:19 Shock Home Meds: Home Meds Tamsulosin [Flomax] 0.4 mg PO DAILY 08/14/17 [History] raNITIdine HCl [Zantac] 300 mg PO DAILY 08/14/17 [History] Finasteride 1 tab PO DAILY 01/03/20 [History] Oxybutynin [Oxybutynin ER] 1 tab PO DAILY 01/03/20 [History] Sucralfate [Carafate] 1 gm PO TID PRN #30 tablet 01/11/20 [Rx] Past Medical History - Past Health History Medical/Surgical History: Denies Medical/Surgical History HEENT History: Reports: None Cardiovascular History: Reports: None Respiratory History: Reports: COPD Gastrointestinal History: Reports: Gastritis, GI Bleed Other Gastrointestinal History: Bleeding ulcers 15 years ago Genitourinary History: Reports: BPH Neurological History: Reports: None Endocrine/Metabolic History: Reports: None Hematologic History: Reports: None Oncologic (Cancer) History: Reports: None Dermatologic History: Reports: None - Past Surgical History Other Musculoskeletal Surgeries/Procedures:: right femur surgery 30 years ago Social & Family History - Family History Family Medical History: Noncontributory - Tobacco Use Smoking Status *Q: Unknown Ever Smoked - Caffeine Use Caffeine Use: Reports: Coffee - Living Situation & Occupation Living situation: Reports: Occupation: Employed ED ROS GENERAL - Review of Systems Review Of Systems: See Below Constitutional: Reports: No Symptoms HEENT: Reports: No Symptoms Respiratory: Reports: Shortness of Breath Cardiovascular: Reports: Chest Pain Endocrine: Reports: No Symptoms GI/Abdominal: Reports: No Symptoms : Reports: No Symptoms Musculoskeletal: Reports: No Symptoms ED EXAM, GENERAL - Physical Exam Exam: See Below Exam Limited By: No Limitations General Appearance: Alert, No Apparent Distress Ears: Normal External Exam Nose: Normal Inspection Head: Atraumatic, Normocephalic Neck: Normal Inspection Respiratory/Chest: No Respiratory Distress, Lungs Clear, Normal Breath Sounds Cardiovascular: Regular Rate, Rhythm, No Edema, No Murmur GI/Abdominal: Soft, Non-Tender, No Organomegaly, No Mass Extremities: Normal Inspection Neurological: Alert, Oriented, No Motor/Sensory Deficits EKG INTERPRETATION EKG Date: 01/11/20 Time: 09:15 Rhythm: NSR Rate (Beats/Min): 66 [place]: Normal P-Wave: Present QRS: RBBB ST-T: Normal QT: Normal Course - Vital Signs Last Recorded V/S: Last Vital Signs Temp 96.9 F 01/11/20 09:16 Pulse 62 01/11/20 09:16 Resp 12 01/11/20 09:16 BP 163/82 H 01/11/20 09:16 Pulse Ox 96 01/11/20 09:16 - Orders/Labs/Meds Orders: Active Orders 24 hr Category Date Time Status Cardiac Monitoring [RC] . DIRECTED Care 01/11/20 09:28 Active EKG Documentation Completion [RC] STAT Care 01/11/20 09:29 Active Peripheral IV Care [RC] . DIRECTED Care 01/11/20 09:29 Active LIPID PANEL [CHEM] Stat Lab 01/11/20 09:50 Received Sodium Chloride 0.9% [Saline Flush] Med 01/11/20 09:28 Active 10 ml FLUSH ASDIRECTED PRN Peripheral IV Insertion Adult [OM.PC] Stat Oth 01/11/20 09:28 Ordered Medication Orders Sodium Chloride (Saline Flush) 10 ml FLUSH ASDIRECTED PRN PRN Reason: Keep Vein Open Last Admin: 01/11/20 09:53 Dose: 10 ml Documented by: QUE Labs: Laboratory Tests 01/11/20 01/11/20 Range/Units 09:50 09:50 WBC 5.18 (4.23-9.07) K/mm3 RBC 5.45 (4.63-6.08) M/mm3 Hgb 16.8 (13.7-17.5) gm/dl Hct 50.7 (40.1-51.0) % MCV 93.0 H (79.0-92.2) fl MCH 30.8 (25.7-32.2) pg MCHC 33.1 (32.2-35.5) g/dl RDW Std Deviation 46.4 H (35.1-43.9) fL Plt Count 208 (163-337) K/mm3 MPV 10.3 (9.4-12.3) fl Neut % (Auto) 54.6 (34.0-67.9) % Lymph % (Auto) 33.6 (21.8-53.1) % [place] % (Auto) 9.5 (5.3-12.2) % Eos % (Auto) 1.7 (0.8-7.0) Baso % (Auto) 0.4 (0.1-1.2) % Neut # (Auto) 2.83 (1.78-5.38) K/mm3 Lymph # (Auto) 1.74 (1.32-3.57) K/mm3 [place] # (Auto) 0.49 (0.30-0.82) K/mm3 Eos # (Auto) 0.09 (0.04-0.54) K/mm3 Baso # (Auto) 0.02 (0.01-0.08) K/mm3 Sodium 143 (136-145) mEq/L Potassium 4.1 (3.5-5.1) mEq/L Chloride 104 (98-107) mEq/L Carbon Dioxide 30 (21-32) mEq/L Anion Gap 13.1 (5-15) BUN 20 H (7-18) mg/dL Creatinine 1.2 (0.7-1.3) mg/dL Est Cr Clr Drug Dosing 54.64 mL/min Estimated GFR (MDRD) > 60 (>60) mL/min BUN/Creatinine Ratio 16.7 (14-18) Glucose 110 (80-115) mg/dL Calcium 9.5 (8.5-10.1) mg/dL Total Bilirubin 0.6 (0.2-1.0) mg/dL AST 12 L (15-37) U/L ALT 24 (16-63) U/L Alkaline Phosphatase 68 (46-116) U/L Troponin I < 0.017 (0.00-0.056) ng/mL Total Protein 6.6 (6.4-8.2) g/dl Albumin 3.5 (3.4-5.0) g/dl Globulin 3.1 gm/dL Albumin/Globulin Ratio 1.1 (1-2) Meds: Medications Generic Name Dose Route Start Last Admin Trade Name Freq PRN Reason Stop Dose Admin Sodium Chloride 10 ml 01/11/20 09:28 01/11/20 09:53 Saline Flush FLUSH 10 ml ASDIRECTED PRN Administration Keep Vein Open Discontinued Medications Generic Name Dose Route Start Last Admin Trade Name Freq PRN Reason Stop Dose Admin Aspirin 324 mg 01/11/20 09:28 01/11/20 09:51 Aspirin PO 01/11/20 09:29 324 mg ONETIME ONE Administration Al Hydroxide/Mg Hydroxide 30 0 ml 01/11/20 09:29 01/11/20 09:51 ml/ Lidocaine HCl 15 ml PO 01/11/20 09:30 45 ml ONETIME ONE Administration Famotidine 20 mg 01/11/20 09:29 01/11/20 09:52 Pepcid IVPUSH 01/11/20 09:30 20 mg ONETIME ONE Administration - Re-Assessments/Exams Free Text/Narrative Re-Assessment/Exam: 01/11/20 11:49 I ordered an IV saline lock, aspirin, pepcid 20mg IV, GI cocktail, labs, EKG and CXR. His CXR looks good. His EKG shows a NSR and RBBB with no acute changes and no change from prior. His CBC and CMP look good. His troponin is negative. I called Dr Pope at [facility] in [place] and he wanted me to do a lipid panel and still have him do the stress test. I will also get him on some carafate. Departure - Departure Time of Disposition: 11:55 Disposition: Home, Self-Care 01 Condition: Good Clinical Impression: Atypical chest pain Prescriptions: Sucralfate [Carafate] 1 gm PO TID PRN #30 tablet PRN Reason: Abdominal Pain Referrals: David Roe MD [Primary Care Provider] - 1 Week Forms: ED Department Discharge Additional Instructions: Take your medication as prescribed. Take the carafate 3 times per day as needed for symptoms. Take an hour before eating. That may help. Keep the appointment for the stress test. Please return if you are worse. Sepsis Event Note (ED) - Evaluation Sepsis Screening Result: No Definite Risk - Focused Exam Vital Signs: Vital Signs Temp Pulse Resp BP Pulse Ox 01/11/20 09:16 96.9 F 62 12 163/82 H 96 - My Orders Last 24 Hours: My Active Orders 01/11/20 09:28 Cardiac Monitoring [RC] . DIRECTED Sodium Chloride 0.9% [Saline Flush] 10 ml FLUSH ASDIRECTED PRN Peripheral IV Insertion Adult [OM.PC] Stat 01/11/20 09:29 EKG Documentation Completion [RC] STAT Peripheral IV Care [RC] . DIRECTED 01/11/20 09:50 LIPID PANEL [CHEM] Stat - Assessment/Plan Last 24 Hours: My Active Orders 01/11/20 09:28 Cardiac Monitoring [RC] . DIRECTED Sodium Chloride 0.9% [Saline Flush] 10 ml FLUSH ASDIRECTED PRN Peripheral IV Insertion Adult [OM.PC] Stat 01/11/20 09:29 EKG Documentation Completion [RC] STAT Peripheral IV Care [RC] . DIRECTED 01/11/20 09:50 LIPID PANEL [CHEM] Stat
== END 2020-01-11 12:18 | disposition home or self-care (01) ==
LOC: JD.ED 09:10
DX: R07.89 Other chest pain (principal); N40.0 Benign prostatic hyperplasia without lower urinary tract symptoms; J44.9 Chronic obstructive pulmonary disease, unspecified; Z91.030 Bee allergy status; Z79.899 Other long term (current) drug therapy
CPT/HCPCS: 36415; 71046; 80053; 80061; 84484; 85025; 93005; 96374; 99285; A9270; J3490; 93010; 99283

== ENCOUNTER 2024-09-21 19:23 | Inpatient (IN) | payer MEDICARE, BC ==
[2024-09-21] MEDS: methylPREDNISolone Sodium Succinate 125 MG/2 ML SDV IVPUSH ONE (20:07)
[2024-09-21] MEDS: Sodium Chloride 0.9% 10 ML Syringe FLUSH PRN (20:08)
[2024-09-21] MEDS: Albuterol/Ipratropium 3.0-0.5 MG/3 ML Neb Soln NEB ONE (20:15)
[2024-09-21 20:30] LABS: BASOPHILS PERCENT AUTO 0.2 % (0.0-1.0); EOSINOPHILS PERCENT AUTO 0.2 % (0.0-6.0); HEMATOCRIT 43.5 % (42.0-52.0); HEMOGLOBIN 14.6 gm/dl (14.0-18.0); IMMATURE GRAN ABSOLUTE AUTO 0.03 K/mm3 (0.00-0.05); IMMATURE GRAN PERCENT AUTO 0.2 % (0.0-0.4); LYMPHOCYTES ABSOLUTE AUTO 1.9 K/mm3 (1.0-4.8); LYMPHOCYTES PERCENT AUTO 15.1 % (24.0-44.0); MEAN CORPUSCULAR HEMOGLOBIN 31.2 pg (28.0-32.0); MEAN CORPUSCULAR HGB CONC 33.6 g/dl (32.0-36.0); MEAN CORPUSCULAR VOLUME 92.9 fl (83.0-99.0); MEAN PLATELET VOLUME 10.8 fl (9.4-12.4); MONOCYTES ABSOLUTE AUTO 1.5 K/mm3 (0.0-0.8); MONOCYTES PERCENT AUTO 12.2 % (0.0-8.0); NEUTROPHILS ABSOLUTE AUTO 8.9 K/mm3 (1.8-7.7); NEUTROPHILS PERCENT AUTO 72.1 % (41.0-71.0); PLATELET COUNT,PLT 78 K/mm3 (150-400); RED BLOOD CELL COUNT 4.68 M/mm3 (4.52-5.90)
[2024-09-21 20:47] LABS: ALBUMIN 3.3 g/dl (3.4-5.0); ANION GAP 11.7 (5-15); BILIRUBIN TOTAL 1.1 mg/dL (0.2-1.0); BUN/CREATININE RATIO 12.5 (14-18); CALCIUM 8.3 mg/dL (8.5-10.1); CREATININE 1.2 mg/dL (0.7-1.3); EST CRCL DRUG DOSING (CG) 51.69 mL/min; MAGNESIUM 1.5 mg/dL (1.8-2.4); POTASSIUM,K 3.7 mEq/L (3.5-5.1); PROTEIN TOTAL,TP 6.5 g/dl (6.4-8.2)
[2024-09-21] MEDS: Magnesium Sulfat/D5W 1GM/100ML 1 GM in Premix Bag 1 BAG IV ONE (21:38)
[2024-09-21] MEDS ORDERED: Ondansetron 4 MG Tab.DIS PO PRN (22:30)
[2024-09-21] MEDS ORDERED: Albuterol 0.083% 2.5 MG/3 ML Neb Soln NEB PRN (22:30)
[2024-09-21] MEDS ORDERED: Acetaminophen 325 MG Tab PO PRN (22:30)
[2024-09-21] MEDS: cefTRIAXone 1 GM Vial IVPUSH ONE (22:33)
[2024-09-21] MEDS: Nicotine 14 MG/24 Hr Patch TRDERM SCH (23:56)
[2024-09-22] MEDS ORDERED: Docusate Sodium 100 MG Cap PO PRN (07:45)
[2024-09-22] MEDS ORDERED: Polyethylene Glycol 3350 Powder 17 GM Packet PO PRN (07:45)
[2024-09-22] MEDS: Nicotine 21 MG/24 Hr Patch TRDERM SCH (08:35)
[2024-09-22] MEDS: Azithromycin 250 MG Tab PO SCH (08:36)
[2024-09-22] MEDS: Enoxaparin 40 MG/0.4 ML Syringe SUBCUT SCH (08:36)
[2024-09-22] MEDS: predniSONE 20 MG Tab PO ONE (08:36)
[2024-09-22] MEDS: Albuterol/Ipratropium 3.0-0.5 MG/3 ML Neb Soln NEB SCH (09:00)
[2024-09-22] MEDS: Oxybutynin 5 MG Tab.ER PO SCH (10:33)
[2024-09-22] MEDS: Isosorbide Mononitrate 30 MG Tab.ER PO SCH (10:33)
[2024-09-22] MEDS: Metoprolol Succinate 25 MG Tab.ER PO SCH (10:33)
[2024-09-22] MEDS: Finasteride 5 MG Tab PO SCH (10:33)
[2024-09-22] MEDS: Tamsulosin 0.4 MG Cap.ER PO SCH (10:33)
[2024-09-22] MEDS: atorvaSTATin 40 MG Tab PO SCH (20:23)
[2024-09-22] MEDS: Famotidine 20 MG Tab PO SCH (20:23)
[2024-09-22] MEDS: cefTRIAXone 2 GM Vial IVPUSH SCH (21:15)
[2024-09-23 04:38] LABS: BASOPHILS PERCENT AUTO 0.2 % (0.0-1.0); HEMATOCRIT 41.7 % (42.0-52.0); HEMOGLOBIN 13.9 gm/dl (14.0-18.0); IMMATURE GRAN ABSOLUTE AUTO 0.04 K/mm3 (0.00-0.05); IMMATURE GRAN PERCENT AUTO 0.3 % (0.0-0.4); LYMPHOCYTES ABSOLUTE AUTO 1.9 K/mm3 (1.0-4.8); LYMPHOCYTES PERCENT AUTO 15.8 % (24.0-44.0); MEAN CORPUSCULAR HEMOGLOBIN 30.8 pg (28.0-32.0); MEAN CORPUSCULAR HGB CONC 33.3 g/dl (32.0-36.0); MEAN CORPUSCULAR VOLUME 92.3 fl (83.0-99.0); MEAN PLATELET VOLUME 11.1 fl (9.4-12.4); MONOCYTES ABSOLUTE AUTO 1.3 K/mm3 (0.0-0.8); NEUTROPHILS ABSOLUTE AUTO 8.6 K/mm3 (1.8-7.7); NEUTROPHILS PERCENT AUTO 72.7 % (41.0-71.0); PLATELET COUNT,PLT 94 K/mm3 (150-400); RED BLOOD CELL COUNT 4.52 M/mm3 (4.52-5.90)
[2024-09-23 05:08] LABS: A/G RATIO 0.9 (1-2); ALBUMIN 2.9 g/dl (3.4-5.0); BILIRUBIN TOTAL 0.4 mg/dL (0.2-1.0); BUN/CREATININE RATIO 17.5 (14-18); C-REACTIVE PROTEIN 3.86 mg/dL (<0.30); CALCIUM 8.3 mg/dL (8.5-10.1); CREATININE 1.2 mg/dL (0.7-1.3); EST CRCL DRUG DOSING (CG) 51.69 mL/min; MAGNESIUM 2.1 mg/dL (1.8-2.4); PROTEIN TOTAL,TP 6.3 g/dl (6.4-8.2)
[2024-09-23] MEDS: predniSONE 20 MG Tab PO SCH (06:35)
[2024-09-23 06:48] LABS: SLIDE REVIEW ABNORMAL SMEAR
[2024-09-23] MEDS: Aspirin 81 MG Tab.EC PO SCH (09:04)
[2024-09-23] MEDS: Lisinopril 5 MG Tab PO SCH (09:06)
[2024-09-23 12:57] VITALS: BP 108/64; PULSE 91
== END 2024-09-23 13:18 | disposition home or self-care (01) | DRG 193 ==
LOC: JD.ED 19:23 → JD.MS 22:30
PROVIDERS: ADMIT Internal Medicine; ATTEND Family Medicine
DX: J18.9 Pneumonia, unspecified organism (principal); J96.01 Acute respiratory failure with hypoxia; J44.0 Chronic obstructive pulmonary disease with (acute) lower respiratory infection; J44.1 Chronic obstructive pulmonary disease with (acute) exacerbation; Z68.32 Body mass index [BMI] 32.0-32.9, adult; N40.0 Benign prostatic hyperplasia without lower urinary tract symptoms; E78.5 Hyperlipidemia, unspecified; E66.9 Obesity, unspecified; D69.6 Thrombocytopenia, unspecified; I10 Essential (primary) hypertension; H54.7 Unspecified visual loss; K21.9 Gastro-esophageal reflux disease without esophagitis; H91.90 Unspecified hearing loss, unspecified ear; F17.200 Nicotine dependence, unspecified, uncomplicated; R00.1 Bradycardia, unspecified; Z91.030 Bee allergy status; Z79.899 Other long term (current) drug therapy; Z98.890 Other specified postprocedural states; Z95.5 Presence of coronary angioplasty implant and graft; Z86.16 Personal history of COVID-19
CPT/HCPCS: 36415; 71045; 80053; 83735; 83880; 84484; 85025; 85379; 93005; 94640; 96365; 96375; 99285; A9270; J2919; J3475; 83605; 86140; 87040; 93010; 94667; 94668; 94761; 99284; J0696; J1650; J7512